=== PATIENT | male | born 1985 | race African-American/Black ===

== ENCOUNTER 2020-03-02 13:44 | Outpatient (CLI) | payer MEDICAID ==
[~2020-03-02] VITALS: Ht 190.5 cm; Wt 144.2 kg
[2020-03-02] MEDS ORDERED: OMEPRAZOLE20 M2 ORAL (15:58)
[2020-03-02] MEDS ORDERED: NESINA25 MG PO (15:58)
[2020-03-02] MEDS ORDERED: AMLODIPINE BESYL5 MG ORAL (15:58)
[2020-03-02] MEDS ORDERED: GLIPIZIDE XL5 MG ORAL (15:58)
[2020-03-02 15:59] VITALS: BP 147/105
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
== END 2020-03-02 15:44 | disposition home or self-care (01) ==
LOC: PAN 13:44
DX: R10.9 Unspecified abdominal pain (principal); K21.9 Gastro-esophageal reflux disease without esophagitis; K59.00 Constipation, unspecified; R14.0 Abdominal distension (gaseous); I10 Essential (primary) hypertension; E11.9 Type 2 diabetes mellitus without complications; F17.200 Nicotine dependence, unspecified, uncomplicated
CPT/HCPCS: G0463

== ENCOUNTER 2020-05-12 13:35 | Outpatient (CLI) | payer MEDICAID ==
[~2020-05-12 13:35] MED LIST: AMLODIPINE BESYL5 MG ORAL; GLIPIZIDE XL5 MG ORAL; NESINA25 MG PO; OMEPRAZOLE20 M2 ORAL
--- NOTE | 2020-05-13 14:48 | General Progress Note ---
Subjective ROS Limited/Unobtainable: Yes Allergies: Coded Allergies: No Known Allergies (Unverified , 03/02/20) Objective General Appearance: alert EENT: normal ENT inspection Neck: supple Cardiovascular: normal rate Respiratory/Chest: decreased breath sounds Abdomen: normal bowel sounds, non tender, soft Extremities: non-tender Assessment/Plan Assessment/Plan: 1. UTI. 2. Hypertension. 3. Diabetes. 4. GERD. s/p EGD add Align RTC prn Deng Rush MD May 13, 2020 14:48
== END 2020-05-12 15:35 | disposition home or self-care (01) ==
LOC: PAN 13:35
DX: K21.9 Gastro-esophageal reflux disease without esophagitis (principal); N39.0 Urinary tract infection, site not specified; E11.9 Type 2 diabetes mellitus without complications; I10 Essential (primary) hypertension
CPT/HCPCS: 99212